=== PATIENT | male | born 1935 | race Caucasian/White ===

== ENCOUNTER 2017-04-12 09:17 | Outpatient (CLI) | payer MEDICARE, BC ==
--- NOTE | 2017-04-12 10:26 | RAD ---
CHEST 2 VIEWS: Date: 04/12/17 HISTORY: Chest pain. COMPARISON: 07/26/16. FINDINGS: Cardiac silhouette and pulmonary vasculature are unremarkable. Mediastinum is midline with postoperat marsha changes and a dual lead left subclavian cardiac electronic device. There is no confluent air spac e consolidation, pneumothorax, or pleural fluid evident. Degenerative changes in the thoracic spine a re apparent on the lateral view. IMPRESSION: Stable radiographic appearance of the chest. POS: [facility]
== END 2017-04-12 09:18 | disposition home or self-care (01) ==
LOC: RAD 09:17
PROVIDERS: ATTEND Internal Medicine Pulmonary Disease
DX: R06.00 Dyspnea, unspecified (principal)
CPT/HCPCS: 71046

== ENCOUNTER 2018-07-26 09:16 | Outpatient (CLI) | payer MEDICARE, BC ==
--- NOTE | 2018-07-26 10:03 | RAD ---
EXAM: Two views chest PROVIDED CLINICAL HISTORY: Dyspnea COMPARISON: 04/12/2017 FINDINGS: A dual-lead left subclavian AICD device remains in place. 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 Cardiac silhouette and pulmonary vasculature are within normal limits. The lungs are clear. Degenerat marsha changes are again seen in the spine.Vascular calcifications are seen in the thoracic aorta. IMPRESSION: No acute cardiopulmonary process.
== END 2018-07-26 09:17 | disposition home or self-care (01) ==
LOC: RAD 09:16
PROVIDERS: ATTEND Internal Medicine Pulmonary Disease
DX: R06.00 Dyspnea, unspecified (principal)
CPT/HCPCS: 71046